=== PATIENT | female | born 1990 | race Caucasian/White ===

== ENCOUNTER 2017-01-15 11:49 | Inpatient (IN) | payer BC, OTHER ==
[~2017-01-15] VITALS: Ht 165.1 cm; Wt 46.9 kg
[2017-01-15 12:10] VITALS: BP 111/86
[2017-01-15] MEDS ORDERED: FLUT9.9S NS (12:14)
[2017-01-15] MEDS ORDERED: CETI10TA22 PO (12:14)
[2017-01-15] MEDS ORDERED: ASPI1TAB30 PO (12:14)
[2017-01-15 13:10] LABS: BASO % 1 % (0-3); EOS # 0.1 x10^3/uL (0.0-0.7); EOS % 1 % (0-3); HEMATOCRIT 41.3 % (36.0-47.0); HEMOGLOBIN 13.7 g/dL (12.0-15.5); LYMPH # 1.4 x10^3/uL (1.0-4.8); LYMPH % 31 % (24-48); MEAN CORPUSCULAR HEMOGLOBIN 29 pg (25-35); MEAN CORPUSCULAR HGB CONC 33 g/dL (31-37); MEAN CORPUSCULAR VOLUME 86 fL (79-100); MONO # 0.6 x10^3/uL (0.0-1.1); MONO % 13 % (0-9); NEUT # 2.3 x10^3uL (1.8-7.7); NEUT % 54 % (31-73); PLATELET COUNT 184 x10^3/uL (140-400); RED CELL DISTRIBUTION WIDTH 15.9 % (11.5-14.5); WHITE BLOOD COUNT 4.3 x10^3/uL (4.0-11.0)
[2017-01-15] MEDS: KETOROLAC 15 MG/ML VIAL. IV PRN ×2 (13:26→19:13)
[2017-01-15] MEDS: ACYCLOVIR SODIUM IV SCH ×2 (13:27→21:28)
[2017-01-15] MEDS: DEXTROSE 5% IV SCH ×2 (13:27→21:28)
[2017-01-15 13:41] LABS: ALBUMIN 3.8 g/dL (3.4-5.0); CALCIUM 8.6 mg/dL (8.5-10.1); POTASSIUM 4.5 mmol/L (3.5-5.1); TOTAL BILIRUBIN 0.8 mg/dL (0.2-1.0); TOTAL PROTEIN 7.5 g/dL (6.4-8.2)
[2017-01-15] MEDS: ASA/APAP/CAFFEINE 250/250/65MG TABLET. PO PRN (14:56)
[2017-01-15 15:40] VITALS: BP 107/58
[2017-01-15] MEDS: HYDROcodone/APAP 5/325MG 1 TAB TABLET PO PRN ×2 (15:46→22:40)
--- NOTE | 2017-01-15 17:50 | PDOC ---
SUBJECTIVE: Shingles right side of face. OBJECTIVE: Problems: Typical vesicular rash right side of face, periorbital region and nose. No ocular involvement at this time. Vital Signs: Vital Signs Date Time Temp Pulse Resp B/P (MAP) Pulse Ox O2 Delivery O2 Flow Rate FiO2 01/15/17 15:46 Room Air 01/15/17 15:40 99.6 85 20 107/58 (74) 99 Labs: Laboratory Tests Test 01/15/17 13:00 01/15/17 13:45 White Blood Count 4.3 x10^3/uL (4.0-11.0) Red Blood Count 4.80 x10^6/uL (3.50-5.40) Hemoglobin 13.7 g/dL (12.0-15.5) Hematocrit 41.3 % (36.0-47.0) Mean Corpuscular Volume 86 fL (79-100) Mean Corpuscular Hemoglobin 29 pg (25-35) Mean Corpuscular Hemoglobin Concent 33 g/dL (31-37) Red Cell Distribution Width 15.9 % (11.5-14.5) Platelet Count 184 x10^3/uL (140-400) Neutrophils (%) (Auto) 54 % (31-73) Lymphocytes (%) (Auto) 31 % (24-48) Monocytes (%) (Auto) 13 % (0-9) Eosinophils (%) (Auto) 1 % (0-3) Basophils (%) (Auto) 1 % (0-3) Neutrophils # (Auto) 2.3 x10^3uL (1.8-7.7) Lymphocytes # (Auto) 1.4 x10^3/uL (1.0-4.8) Monocytes # (Auto) 0.6 x10^3/uL (0.0-1.1) Eosinophils # (Auto) 0.1 x10^3/uL (0.0-0.7) Basophils # (Auto) 0.0 x10^3/uL (0.0-0.2) Erythrocyte Sedimentation Rate 7 (0-25) Sodium Level 138 mmol/L (136-145) Potassium Level 4.5 mmol/L (3.5-5.1) Chloride Level 104 mmol/L (98-107) Carbon Dioxide Level 26 mmol/L (21-32) Anion Gap 8 (6-14) Blood Urea Nitrogen 9 mg/dL (7-20) Creatinine 1.0 mg/dL (0.6-1.0) Estimated GFR (Cockcroft-Gault) 66.0 BUN/Creatinine Ratio 9 (6-20) Glucose Level 78 mg/dL (70-99) Calcium Level 8.6 mg/dL (8.5-10.1) Total Bilirubin 0.8 mg/dL (0.2-1.0) Aspartate Amino Transf (AST/SGOT) 18 U/L (15-37) Alanine Aminotransferase (ALT/SGPT) 22 U/L (14-59) Alkaline Phosphatase 62 U/L (46-116) Total Protein 7.5 g/dL (6.4-8.2) Albumin 3.8 g/dL (3.4-5.0) Albumin/Globulin Ratio 1.0 (1.0-1.7) Lactic Acid Level 1.1 mmol/L (0.4-2.0) Physical Exam: As above ASSESSMENT: Herpes Zoster Dermatitis, no ocular involvement with the exception of periorbital region. PLAN: Continue present treatment with Acyclovir. Recommend patient get eye exam within two weeks to ensure to ocular involvement since there is risk of this as there is involvement of her nose (Downey sign). MELO MAN DO Jan 15, 2017 17:50
[2017-01-15 20:43] VITALS: BP 107/61
[2017-01-15] MEDS: ZOLPIDEM 5 MG TABLET. PO PRN (21:28)
[2017-01-15 23:20] VITALS: BP 109/65
[2017-01-16] MEDS: KETOROLAC 15 MG/ML VIAL. IV PRN (02:51)
[2017-01-16] MEDS: DEXTROSE 5% IV SCH ×3 (05:19→22:30)
[2017-01-16] MEDS: ACYCLOVIR SODIUM IV SCH ×3 (05:19→22:30)
[2017-01-16] MEDS: HYDROcodone/APAP 5/325MG 1 TAB TABLET PO PRN ×4 (05:28→23:12)
[2017-01-16 05:52] VITALS: BP 115/67
[2017-01-16 06:34] LABS: BASO % 1 % (0-3); EOS # 0.1 x10^3/uL (0.0-0.7); EOS % 2 % (0-3); HEMATOCRIT 37.5 % (36.0-47.0); HEMOGLOBIN 12.6 g/dL (12.0-15.5); LYMPH # 1.5 x10^3/uL (1.0-4.8); LYMPH % 38 % (24-48); MEAN CORPUSCULAR HEMOGLOBIN 29 pg (25-35); MEAN CORPUSCULAR HGB CONC 33 g/dL (31-37); MEAN CORPUSCULAR VOLUME 86 fL (79-100); MONO # 0.7 x10^3/uL (0.0-1.1); MONO % 18 % (0-9); NEUT # 1.6 x10^3uL (1.8-7.7); NEUT % 41 % (31-73); PLATELET COUNT 161 x10^3/uL (140-400); RED BLOOD COUNT 4.39 x10^6/uL (3.50-5.40); RED CELL DISTRIBUTION WIDTH 15.7 % (11.5-14.5); WHITE BLOOD COUNT 3.9 x10^3/uL (4.0-11.0)
[2017-01-16 06:53] LABS: ALBUMIN 3.2 g/dL (3.4-5.0); CALCIUM 7.9 mg/dL (8.5-10.1); POTASSIUM 4.3 mmol/L (3.5-5.1); TOTAL BILIRUBIN 0.5 mg/dL (0.2-1.0); TOTAL PROTEIN 6.5 g/dL (6.4-8.2)
[2017-01-16] MEDS ORDERED: FLUTICASONE 50MCG/NASAL SPRAY 16GM BOTTLE. NS SCH (09:00)
[2017-01-16] MEDS ORDERED: CETIRIZINE HCL 10 MG TABLET PO SCH (09:00)
[2017-01-16] MEDS ORDERED: IV NORMAL SALINE 500ML 500 ML ONE (09:12)
[2017-01-16] MEDS: ASA/APAP/CAFFEINE 250/250/65MG TABLET. PO PRN (09:17)
[2017-01-16 10:52] VITALS: BP 113/74
[2017-01-16 14:44] VITALS: BP 102/53
--- NOTE | 2017-01-16 15:43 | CONS ---
DATE OF CONSULTATION: 01/15/2017 PHYSICIAN REQUESTING CONSULTATION: Benja Brunson M.D. TIME: 1745. CHIEF COMPLAINT: Shingles. HISTORY OF PRESENT ILLNESS: This 26-year-old female was seen [facility] on 01/13/2017 for swelling on the side of her face. She was given a prescription for Bactrim. She continued to have pain and swelling and sharp pain around the right eye with migraine headache and then she had a very large blistering rash with swelling breakout over the last 48 hours. She was admitted to [facility] today. I was asked to evaluate the patient to rule out any ocular involvement of the herpes zoster. FAMILY HISTORY: Noncontributory. SOCIAL HISTORY: Noncontributory. PAST MEDICAL HISTORY: The patient does have a history of Lyme disease, which was treated. FAMILY HISTORY: Mother with diabetes, father with cardiovascular disease. MEDICATIONS: The patient was on Bactrim p.o. prior to admission, but no other medications. She presently is on intravenous acyclovir, levofloxacin and she has Lortab for pain as well as Toradol. PHYSICAL EXAMINATION: GENERAL: The patient is a well-developed, well-nourished female who is in no acute distress. NEUROLOGIC: She is alert, cooperative. Her mood and affect is appropriate. Visual acuity without correction is J7 in the right and J3 in the left. Attempts at intraocular pressure were unsuccessful as the patient was just too uncooperative. External, there is a vesicular rash on erythematous base involving the right side of the face including the forehead, scalp, periorbital region, and nose and a small amount of the upper cheek. Visual nguyen are full to confrontation. Motility is normal. Pupils are equal, round and reactive to light. There is no afferent pupillary defect. Intraocular pressures to palpation are normal. Slit lamp examination with portable slit lamp reveals a scabbed lesion along the upper lid near the lid margin. Conjunctivae are quiet. Tear film is normal. Corneas clear. Anterior chambers deep and quiet. The iris is normal and the lens is clear. IMPRESSION: Herpes zoster dermatitis involving the V1 and V2 distribution of the trigeminal nerve on the right. There presently is no ocular involvement with the exception of the periorbital region. There is a risk of future ocular involvement, however due to involvement of the nose (Downey sign). I agree with present treatment of IV acyclovir and pain control. No treatment of the eyes is necessary at the present time. I would recommend she be seen within the next 2 weeks to rule out any corneal or intraocular involvement or earlier if she has increased redness or change in character of her discharge or decreasing vision. She is seeing Gustabo Britt OD in her hometown of [place] within a week. Thank you very much for consulting me on this pleasant patient. If there is anything else I can do, please do not hesitate to contact me. MELO MAN DO DR: Ijeoma JOB#: [id number] / [id number]
[2017-01-16 19:01] VITALS: BP 114/70
[2017-01-16] MEDS: ZOLPIDEM 5 MG TABLET. PO PRN (22:30)
[2017-01-16 22:42] VITALS: BP_SYST 122; BP_DIAS 6; BP_DIAS 64
[2017-01-17] MEDS: DEXTROSE 5% IV SCH (05:50)
[2017-01-17] MEDS: ACYCLOVIR SODIUM IV SCH (05:50)
[2017-01-17] MEDS: HYDROcodone/APAP 5/325MG 1 TAB TABLET PO PRN ×2 (05:52→11:56)
[2017-01-17 05:56] VITALS: BP 121/70
[2017-01-17 10:27] VITALS: BP 121/66
[2017-01-17] MEDS ORDERED: ONDANSETRON ODT 4 MG TAB.RAPDIS PO PRN (10:30)
[2017-01-17] MEDS ORDERED: GABA-585 PO (11:45)
[2017-01-17] MEDS ORDERED: ONDA4TAB12 PO (11:45)
[2017-01-17] MEDS ORDERED: HYDR-2758 PO (11:45)
[2017-01-17] MEDS ORDERED: ACYC400T PO (11:46)
== END 2017-01-17 12:20 | disposition home or self-care (01) | DRG 74 ==
LOC: 1 SOUTH 11:49
PROVIDERS: ADMIT Family Medicine; ATTEND Family Medicine
DX: B02.22 Postherpetic trigeminal neuralgia (principal); G43.909 Migraine, unspecified, not intractable, without status migrainosus; Z82.49 Family history of ischemic heart disease and other diseases of the circulatory system; Z86.19 Personal history of other infectious and parasitic diseases; Z83.3 Family history of diabetes mellitus
CPT/HCPCS: 36415; 80053; 83605; 85025; 85651; 86787; 87040; J0133; J1885; J1956; J7040; Q0162

== ENCOUNTER 2021-02-15 10:28 | Emergency (ER) | payer BC, OTHER ==
[~2021-02-15] VITALS: Ht 165.1 cm; Wt 60.0 kg
[~2021-02-15 10:28] MED LIST: ACYC-12 PO; ASPI1TAB31 PO; CETI10TA74 PO; FLUT9.9S NS; GABA-585 PO; HYDR-2155 PO; ONDA4TAB12 PO
[2021-02-15 10:42] VITALS: BP 112/65
--- NOTE | 2021-02-15 10:44 | PHYS DOC ---
Adult General HPI HPI Patient is a 30-year-old female presenting for multiple complaints. Reports she got the [employer] COVID-19 vaccination yesterday. Reports several hours afterwards reporting not feeling well. States she woke up this morning with generalized aches, pains, subjective fever and chills. She attempted to go to work but due to her condition, her boss forced her to go home. Patient presenting today for evaluation. States she took an ibuprofen of unknown strength yesterday evening and today, took a Tylenol of unknown strike several hours prior to coming in. Otherwise she has been at baseline health, no major changes in health otherwise, no pertinent comorbid conditions or daily medicati ons. Review of Systems Review of Systems Fourteen body systems of review of systems have been reviewed. See HPI for pertinent positives and negative responses, other bobo all other systems are negative, non-pertinent or non-contributory Allergies Allergies Allergies Coded Allergies Type Severity Reaction Last Updated Verified cefaclor Allergy Severe 01/15/17 Yes Penicillins Allergy Intermediate 01/16/17 Yes Physical Exam Physical Exam Constitutional: Well developed, well nourished, no acute distress, non-toxic appearance. No acute distress and nontoxic in appearance, does appear that she feels unwell HENT: Normocephalic, atraumatic, bilateral external ears normal, oropharynx moist, no oral exudates, nose normal. Eyes: PERRLA, EOMI, conjunctiva normal, no discharge. Neck: Normal range of motion, no tenderness, supple, no stridor. Cardiovascular: Heart rate regular, sinus rhythm, no murmurs rubs or gallops Lungs & Thorax: Bilateral breath sounds clear to auscultation Abdomen: Bowel sounds normal, soft, no tenderness, no masses, no pulsatile masses. Nonsurgical abdomen, no peritoneal signs Skin: Warm, dry, no erythema, no rash. Back: No tenderness, no CVA tenderness. Extremities: No tenderness, no cyanosis, no clubbing, ROM intact, no edema. Neurologic: Alert and oriented X 3, grossly normal motor & sensory function, no focal deficits noted. Psychologic: Affect normal, judgement normal, mood normal. EKG EKG [] Radiology/Procedures Radiology/Procedures [] Heart Score C/O Chest Pain: No Risk Factors: Risk Factors: DM, Current or recent (<one month) smoker, HTN, HLP, family history of CAD, obesity. Risk Scores: Risk Factors: DM, Current or recent (<one month) smoker, HTN, HLP, family history of CAD, obesity. Course & Med Decision Making Course & Med Decision Making ABCs unremarkable. HPI, physical examination nonconcerning for any emergent or surgical issues Patient likely suffering from recent COVID-19 vaccination. No signs or symptoms that indicate further diagnostic work-up and/or intervention required. IM Toradol administered with continued supportive care practices advised Strict return precautions discussed with good verbal understanding by patient. All questions and concerns addressed prior to ER departure Dragon Disclaimer Dragon Disclaimer This electronic medical record was generated, in whole or in part, using a voice recognition dictation system. Departure Departure: Impression: Primary Impression: Vaccine reaction Disposition: HOME / SELF CARE / HOMELESS Condition: STABLE Referrals: ALONZO NEFF MD (PCP) LEDA ALCANTARA DO Feb 15, 2021 10:44
[2021-02-15] MEDS ORDERED: KETOROLAC 60 MG/2 ML VIAL. IM ONE (11:00)
== END 2021-02-15 11:28 | disposition home or self-care (01) ==
LOC: ER 10:28
DX: M79.10 Myalgia, unspecified site (principal); R50.9 Fever, unspecified; T50.B95A Adverse effect of other viral vaccines, initial encounter; Z88.1 Allergy status to other antibiotic agents; Z88.0 Allergy status to penicillin; Y92.89 Other specified places as the place of occurrence of the external cause
CPT/HCPCS: 96372; 99283; J1885

== ENCOUNTER 2021-10-01 10:05 | Emergency (ER) | payer OTHER ==
[~2021-10-01] VITALS: Ht 165.1 cm; Wt 55.5 kg
[2021-10-01] MEDS ORDERED: MECLIZINE 12.5 MG TABLET. PO ONE (10:45)
--- NOTE | 2021-10-01 10:48 | PHYS DOC ---
Past History Past Surgical History: No Surgical History Alcohol Use: None General Adult EDM: Chief Complaint: HEADACHE HPI: HPI: Patient is a 31-year-old female presents with a sensation of vertigo. She describes it as feeling off balance and the room is spinning at times uncontrollably. She also states that she feels lightheaded occasionally as if she may pass out. The patient mainly feels like she has trouble maintaining her balance though off-and-on and has had trouble with this for several months. She is also had headaches intermittently. She does not have a headache currently. No fever, neck stiffness, rash or confusion. No significant history of trauma. Review of Systems: Review of Systems: Constitutional: Denies fever Eyes: Denies change in visual acuity or eye pain HENT: Denies sore throat Respiratory: Denies shortness of breath Cardiovascular: Denies chest pain GI: Denies abd pain : Denies dysuria Musculoskeletal: Denies back or extremity injury Integument: Denies rash or skin lesions Neurologic: Denies headache, focal weakness or sensory changes All other systems were reviewed and found to be within normal limits, except as documented in this note. Allergies: Allergies: Allergies Coded Allergies Type Severity Reaction Last Updated Verified cefaclor Allergy Severe 01/15/17 Yes Penicillins Allergy Intermediate 01/16/17 Yes Physical Exam: PE: Constitutional: Well developed, well nourished, no acute distress, non-toxic appearance. HENT: Normocephalic, atraumatic, bilateral external ears normal, mucosa moist, nose normal. Eyes: EOMI, conjunctiva normal, no discharge. Neck: Normal range of motion, supple, no stridor, no meningeal signs. Cardiovascular: Regular rate and rhythm Lungs & Thorax: Bilateral breath sounds clear to auscultation Abdomen: Soft, no tenderness or obvious masses Skin: Warm, dry, no erythema, no rash. Extremities: No tenderness, no cyanosis, no clubbing, ROM intact, no edema. Neurologic: Alert and oriented, normal motor function, normal sensory function, no focal deficits noted. Psychologic: Affect normal, judgement normal, mood normal. EKG: EKG: [] Radiology/Procedures: Radiology/Procedures: [] Heart Score: C/O Chest Pain: No Risk Factors: Risk Factors: DM, Current or recent (<one month) smoker, HTN, HLP, family history of CAD, obesity. Risk Scores: Score 0 - 3: 2.5% MACE over next 6 weeks - Discharge Home Score 4 - 6: 20.3% MACE over next 6 weeks - Admit for Clinical Observation Score 7 - 10: 72.7% MACE over next 6 weeks - Early Invasive Strategies Course & Med Decision Making: Course & Med Decision Making Pertinent Labs and Imaging studies reviewed. (See chart for details) [] Is a 31-year-old female presents with symptoms are consistent with intermittent peripheral vertigo. On her work-up labs are unremarkable. Chest x-ray is negative per my prelim interpretation. Patient was given 25 mg of meclizine with improvement in symptoms. We will give her a prescription and have her follow-up with her primary care physician, she is stable for discharge at this time. Dragon Disclaimer: Dragon Disclaimer: This electronic medical record was generated, in whole or in part, using a voice recognition dictation system. Departure Departure: Impression: Primary Impression: Vertigo Disposition: HOME / SELF CARE / HOMELESS Condition: STABLE Referrals: ALONZO NEFF MD (PCP) Patient Instructions: Vertigo Scripts Meclizine Hcl (MECLIZINE HCL) 25 Mg Tablet 1 TAB PO TID for dizziness, #20 TAB Prov: KEISHA PALACIOS MD 10/01/21 KEISHA PALACIOS MD Oct 01, 2021 10:48
--- NOTE | 2021-10-01 11:16 | EKG ---
[address] [address] Test Date: 2021-10-01 Test Time: 10:54:14 Pat Name: ESEQUIEL NARAYAN Department: Room: Gender: F [employer] Coordinator: HERBERT : 1990 Requested By: KEISHA PALACIOS Order Number: [id number] Reading MD: Measurements Intervals [place] Rate: 66 P: 59 HI: 110 QRS: 68 QRSD: 78 T: 47 QT: 396 QTc: 417 Interpretive Statements SINUS RHYTHM NORMAL ECG RI6.02 No previous ECG available for comparison
[2021-10-01 11:35] LABS: BASO % 1 % (0-3); EOS # 0.2 x10^3/uL (0.0-0.7); EOS % 2 % (0-3); HEMATOCRIT 43.3 % (36.0-47.0); HEMOGLOBIN 14.5 g/dL (12.0-15.5); LYMPH # 2.3 x10^3/uL (1.0-4.8); LYMPH % 30 % (24-48); MEAN CORPUSCULAR HEMOGLOBIN 31 pg (25-35); MEAN CORPUSCULAR HGB CONC 33 g/dL (31-37); MEAN CORPUSCULAR VOLUME 93 fL (79-100); MONO # 0.6 x10^3/uL (0.0-1.1); MONO % 8 % (0-9); NEUT # 4.6 x10^3uL (1.8-7.7); NEUT % 59 % (31-73); PLATELET COUNT 227 x10^3/uL (140-400); RED BLOOD COUNT 4.65 x10^6/uL (3.50-5.40); RED CELL DISTRIBUTION WIDTH 13.2 % (11.5-14.5); WHITE BLOOD COUNT 7.7 x10^3/uL (4.0-11.0)
[2021-10-01 11:38] LABS: BACTERIA,URINE 0 /HPF (0-FEW); CLARITY,URINE CLEAR; COLOR,URINE YELLOW; GLUCOSE,URINE NEG (NEG); NITRITE,URINE NEG (NEG); RBC,URINE 0 /HPF (0-2); SQUAMOUS EPITHELIAL CELL,UR OCC /LPF; U PREG PATIENT NEGATIVE (NEG); UROBILINOGEN,URINE 0.2 mg/dL (0.2 mg/dL); WBC,URINE 0 /HPF (0-4)
[2021-10-01 11:45] LABS: BARBITURATES NEG (NEG); BENZODIAZEPINES NEG (NEG); CANNABINOIDS NEG (NEG); COCAINE NEG (NEG); METHADONE NEG (NEG); OPIATES NEG (NEG); PHENCYCLIDINE NEG (NEG)
[2021-10-01 11:48] LABS: AMPHETAMINE/METHAMPHETAMINE NEG (NEG)
[2021-10-01 11:49] LABS: CALCIUM 8.7 mg/dL (8.5-10.1); CREATININE 0.5 mg/dL (0.6-1.0); GFR 142.1
[2021-10-01 11:53] LABS: SALIC 0.3 mg/dL (2.8-20.0)
[2021-10-01 11:54] LABS: ACETAMIN < 2.0 mcg/mL (10-30); ETHANOL < 10 mg/dL (0-10)
[2021-10-01 11:55] LABS: ALBUMIN 3.8 g/dL (3.4-5.0); ALBUMIN/GLOBULIN RATIO 1.1 (1.0-1.7); MAGNESIUM 2.4 mg/dL (1.8-2.4); TOTAL BILIRUBIN 0.7 mg/dL (0.2-1.0); TOTAL PROTEIN 7.2 g/dL (6.4-8.2)
--- NOTE | 2021-10-01 12:12 | RAD ---
EXAMINATION: Chest radiograph. VIEWS: 1 COMPARISON: None INDICATION:31 years, Female, dizziness. FINDINGS: Normal cardiomediastinal silhouette. No focal consolidation. No pleural effusion or pneumothorax. No acute osseous process. Bilateral breast implants partially obscure pulmonary details. IMPRESSION: No acute cardiopulmonary process. Electronically signed by: Jose Akbar MD (10/01/2021 12:09 PM) [facility]
[2021-10-01] MEDS ORDERED: MECL-75 PO (12:19)
[2021-10-01 12:30] VITALS: BP 116/78
== END 2021-10-01 12:33 | disposition home or self-care (01) ==
LOC: ER 10:05
DX: R42 Dizziness and giddiness (principal); R51.9 Headache, unspecified; Z88.0 Allergy status to penicillin; Z88.1 Allergy status to other antibiotic agents
CPT/HCPCS: 36415; 71045; 80053; 80307; 80329; 81001; 81025; 83735; 84484; 85025; 93005; 99285; G0480